=== PATIENT | male | born 1995 | race Caucasian/White ===

== ENCOUNTER 2020-11-27 13:52 | Emergency (ER) | payer OTHER, SELFPAY ==
[2020-11-27 14:00] VITALS: BP 147/86; PULSE 81; RESP 15; TEMP 36.5; O2SAT 100; BMI 35.9
[2020-11-27 14:04] VITALS: BP 141/76; PULSE 81; RESP 16; O2SAT 96
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
[2020-11-27 15:32] VITALS: BP 122/84; PULSE 82; RESP 18; O2SAT 96
[2020-11-27] MEDS: amoxicillin-clav 875-125 mg Tablet 1 TAB PO (16:04)
[2020-11-27 16:05] VITALS: BP 122/82; PULSE 84; RESP 18; TEMP 37.2; O2SAT 96
--- NOTE | 2020-11-29 10:36 | DCPLANNER ---
Addendum entered by Mary Ann Crews 12/04/20 14:51: product safety manager was asked to refax patients information to Dr. Mcneil. product safety manager refaxed patients information. Original Note: product safety manager had message to schedule a follow up appointment for patient with Dr. Mcneil. product safety manager faxed patients information to the office of Dr. Mcneil, will call for appointment information.
--- NOTE | 2020-12-05 09:01 | DCPLANNER ---
Patient has a follow up appointment scheduled for Thursday, December 10, 2020 at 4:[address] Mcneil. Clinic will call patient with appointment information.
--- NOTE | 2021-01-02 09:59 | DCPLANNER ---
Patient had a follow up appointment scheduled for 12.10.[address] Mcneil - patient did attend appointment.
== END 2020-11-27 16:09 | disposition home or self-care (01) ==
PROVIDERS: Emergency Provider Family Medicine
DX: S02.831A Fracture of medial orbital wall, right side, initial encounter for closed fracture (principal); V49.9XXA Car occupant (driver) (passenger) injured in unspecified traffic accident, initial encounter
CPT/HCPCS: 12345; 70450; 70480; 72125; 99281; 99283